=== PATIENT | male | born 1940 | race Asian ===

== ENCOUNTER 2018-06-20 09:11 | Day surgery (SDC) | payer MEDICARE, OTHER ==
[~2018-06-20] VITALS: Ht 160 cm; Wt 57.8 kg
[~2018-06-20 09:11] MED LIST: ASPI325EC PO; Multiple Vitam1 EAC1 PO; SIMV40 PO
== END 2018-06-20 12:10 | disposition home or self-care (01) ==
LOC: ORSCSDS 09:11
PROVIDERS: Internal Medicine Gastroenterology
PROC: 0DBL8ZX Excision of Transverse Colon, Via Natural or Artificial Opening Endoscopic, Diagnostic (ICD-10-PCS; principal; 2018-06-20 10:45)
PROC: 0DBM8ZX Excision of Descending Colon, Via Natural or Artificial Opening Endoscopic, Diagnostic (ICD-10-PCS; principal; 2018-06-20 10:45)
DX: Z12.11 Encounter for screening for malignant neoplasm of colon (principal); Z85.038 Personal history of other malignant neoplasm of large intestine; Z86.010 Personal history of colon polyps; D12.3 Benign neoplasm of transverse colon; D12.4 Benign neoplasm of descending colon; K57.30 Diverticulosis of large intestine without perforation or abscess without bleeding; K64.8 Other hemorrhoids; Z79.899 Other long term (current) drug therapy; Z79.82 Long term (current) use of aspirin
CPT/HCPCS: 88305; J7120

== ENCOUNTER → 2025-04-11 | Outpatient (CLI) | payer MEDICARE, OTHER ==
[2025-04-12 14:34] LABS: Stool Occult Bld Immuno 1 Negative (NEGATIVE); Stool Occult Bld Immuno 2 Negative (NEGATIVE); Stool Occult Bld Immuno 3 Negative (NEGATIVE)
== END | disposition home or self-care (01) ==
LOC: LAB 13:44 → LAB SHORT 13:44
PROVIDERS: Family Medicine
DX: D64.9 Anemia, unspecified (principal)
CPT/HCPCS: 82274